=== PATIENT | male | born 1990 | race Caucasian/White ===

== ENCOUNTER 2016-05-03 15:35 | Inpatient (IN) | payer OTHER ==
[~2016-05-03] VITALS: Ht 185.4 cm; Wt 72.6 kg
[~2016-05-03 15:35] MED LIST: AMITRIPTYLINE H25 M1 PO; AUGMENTIN 875 M1 TAB PO; DEXILANT60 MG PO; FLEXERIL10 MG PO; FLU VACCINE 0.0.5 ML IM; IBUPROFEN800 MG PO; LEVAQUIN500 MG PO; MOBIC 15MG15 MG PO; MUCINEX DM 30 M1 TER PO; OMEPRAZOLE D/R20 MG PO; PROAIR HFA0.09 MG/Ac INH; ROBITUSSIN (SUG1 BOT PO
--- NOTE | 2016-05-03 15:52 | NUR ---
PT TO ED C/O FEVERS, COUGH SINCE THURSDAY NIGHT. HAS BEEN TAKING TYLENOL AT HOME FOR FEVERS. PT WENT TO WALK IN YESTERDAY TESTED FOR FLU AND STREP. BOTH NEGATIVE. SENT HOME WITH PO ABX. TEMP NOW 101.7.
--- NOTE | 2016-05-03 16:59 | ED THROAT/DENTAL COMPLAINT ---
History of Present Illness General Chief Complaint: Sore Throat, Dental Pain Stated Complaint: SORE THROAT, FEVER Source: patient Exam Limitations: no limitations Allergies Coded Allergies: ibuprofen (INTENSE FLUSHING OCCASIONALLY 05/03/16) Reconcile Medications Acetaminophen 500 MG TABLET 2 TAB PO Q6 PAIN (Reported) Penicillin V Potassium 500 MG TABLET 1 TAB PO TID ANTIBIOTIC (Reported) Triage Note: PT TO ED C/O FEVERS, COUGH SINCE THURSDAY NIGHT. HAS BEEN TAKING TYLENOL AT HOME FOR FEVERS. PT WENT TO WALK IN YESTERDAY TESTED FOR FLU AND STREP. BOTH NEGATIVE. SENT HOME WITH PO ABX. TEMP NOW 101.7. Triage Nurses Notes Reviewed? yes HPI: This patient is a 26-year-old male who presented to the emergency department today for evaluation of multiple complaints. The patient reported that Thursday night he had tactile fevers. He reported that while he was at work on Thursday he felt like, "I was going to ." The patient reported on Thursday he was having fevers and sore throat so he went to the walk-in clinic. They did a rapid strep test and a influenza swab which were both negative. The patient was prescribed penicillin VK which he has been taking without any relief of his symptoms. The patient reported that he is still having fevers and chills. Highest he reported was to 103F. The patient reported that he is having some mild throat discomfort which is worse with swallowing. He reported some associated nausea, but no vomiting. He denied any diarrhea, constipation, chest pain, difficulty breathing, headaches, or any other associated symptoms. (DONNY SANTIAGO,NNAMDI) Vital Signs & Intake/Output Vital Signs & Intake/Output Vital Signs Date Time Temp Pulse Resp B/P Pulse O2 O2 Flow FiO2 Ox Delivery Rate 05/05 1426 98.7 87 20 110/71 99 Room Air 05/05 0746 98.9 85 20 112/58 97 Room Air 05/04 2226 99.0 91 20 112/40 96 Room Air 05/04 2152 101.5 ED Intake and Output 05/05 0000 05/04 1200 Intake Total 3140 400 Output Total 1620 Balance 1520 400 Intake, IV 1200 400 Intake, Oral 1940 Number 0 Bowel Movements Output, Urine 1620 Patient 160 lb Weight Past History Travel History Traveled to [place] past 21 day No Medical History Any Pertinent Medical History? see below for history Neurological: NONE EENT: NONE Cardiovascular: NONE Respiratory: NONE Gastrointestinal: NONE Hepatic: NONE Renal: NONE Musculoskeletal: NONE Psychiatric: depression Endocrine: NONE Blood Disorders: NONE Cancer(s): NONE CASE ASSISTANT/Reproductive: NONE Surgical History Surgical History: N Psychosocial History What is your primary language Tunisian Tobacco Use: Current Daily Use Daily Tobacco Use Amount/Type: => 5 Cigarettes daily ETOH Use: occasional use Illicit Drug Use: denies illicit drug use Family History Hx Contributory? No (NNAMDI HINES PA-C) Review of Systems Review of Systems Constitutional: Reports: see HPI. EENTM: Reports: see HPI. Respiratory: Reports: no symptoms. Cardiovascular: Reports: no symptoms. GI: Reports: see HPI. Genitourinary: Reports: no symptoms. Musculoskeletal: Reports: no symptoms. Skin: Reports: no symptoms. Neurological/Psychological: Reports: no symptoms. All Other Systems: Reviewed and Negative (NNAMDI HINES PA-C) Physical Exam Physical Exam Mouth/Throat: paryngeal injection with no tonsillar exudates or uvular shift. no oropharyngeal lesions or edema. no mandibular or maxillary edema. no drooling or trismus Comments: Well-developed well-nourished person in no acute distress HEENT: Normal EENT exam, head normocephalic, moist mucous membranes Pupils equally round and reactive to light. Neck: Supple. bilateral submandibular and tonsillar lymphadenopathy which is nontender to palpation. No meningeal signs. Full range of motion. No midline tenderness Back: Normal gait Cardiovascular: Tachycardic with a regular rhythm and no murmurs Respiratory: Chest nontender. No respiratory distress. Breath sounds clear to auscultation bilaterally with no wheezes, rales, or rhonchi Abdomen: Soft, nontender and nondistended. No rebound or guarding. No peritoneal signs. Extremity: Normal and equal pulses. Neuro: Alert oriented x3, cranial nerves II through XII grossly intact. Skin: No appreciable rash on exposed skin, skin is warm and clammy Psych: Mood and affect is normal Core Measures ACS in differential dx? No Severe Sepsis Present: No Septic Shock Present: No (NNAMDI HINES PA-C) Progress Differential Diagnosis: epiglottitis, Ludwigs angina, meningitis, odontogenic abscess, casie-tonsillar abscess, pharyngeal for. body, stomatitis/gingivitis, strep pharyngitis, pneumonia, influenza, sinusitis Diagnostic Imaging: Viewed by Me: Radiology Read. Discussed w/RAD: Radiology Read. CXR Impression: PATIENT: FUAD TERRY III PRESENT AGE: 26 PATIENT ACCOUNT NO: [id number] : 91 LOCATION: [facility] ORDERING PHYSICIAN: NNAMDI HINES PA-C SERVICE DATE: 05/03/16-1635 EXAM TYPE: RAD - XRY-CHEST XRAY, PA AND LATERAL EXAMINATION: XR CHEST 2 VIEWS CLINICAL INFORMATION: Fever and cough; question pneumonia. COMPARISON: Prior chest radiographs, most recently 10/11/2014. TECHNIQUE: Frontal and lateral views of the chest were obtained. FINDINGS: The heart, great vessels, pulmonary vasculature and mediastinum are normal. The lungs show no focal infiltrate, effusion or pneumothorax. There is no acute osseous abnormality. IMPRESSION: No active cardiopulmonary disease. DICTATED BY: JEREMY NIEVES MD DATE/TIME DICTATED :05/03/161658 NIB ADJUSTER:TERRY DATE/TIME TRANSCRIBED:05/03/161658 CONFIDENTIAL, DO NOT COPY WITHOUT APPROPRIATE AUTHORIZATION. < Electronically signed in Other Vendor System> SIGNED BY: JEREMY NIEVES MD 05/03/16 1703 (DONNY SANTIAGO,NNAMDI) Plan of Care: Orders Procedure Date/time Status Regular Diet 05/05 D Active CBC WITHOUT DIFFERENTIAL 05/05 1507 Complete Change service to 05/05 1001 Active Change service to 05/05 0935 Active Lab Add-on Test 05/05 UNK Active Current Medications Sig/[place] Start time Last Medication Dose Stop Time Status Admin Ondansetron HCl 4 MG Q8P PRN 05/03 2345 AC (Zofran) Oxycodone HCl 5 MG Q6P PRN 05/03 2345 AC (Roxicodone) Laboratory Tests 05/05/16 1820: CBC w Diff MAN DIFF ORDERED, RBC 5.28, MCV 65.6 L, MCH 20.5 L, RDW 17.0 H, MPV 10.5 H, Gran % 64.7, Lymphocytes % 24.1, Monocytes % 9.8 H, Eosinophils % 1.4, Basophils % 0 L, Absolute Granulocytes 3.5, Segmented Neutrophils 60, Absolute Lymphocytes 1.3, Lymphocytes 31, Monocytes 8, Absolute Monocytes 0.5, Eosinophils 1, Absolute Eosinophils 0.1, Absolute Basophils 0, Platelet Estimate VERIFIED BY SMEAR, Hypochromic-Microcytic 1+, Poikilocytosis 1+, Anisocytosis 1+ , Microcytic Cells 1+, Target Cells FEW, Ovalocytes FEW, Elliptocytes RARE, PUBS MCHC 31.2 L, Fld Total RBCs Counted 100 Departure Departure Disposition: STILL A PATIENT Condition: Stable Clinical Impression Primary Impression: Sepsis Qualifiers: Sepsis type: sepsis due to unspecified organism Qualified Code: A41.9 - Sepsis, unspecified organism Referrals: KULDIP LGOAN MD (PCP/Family) Departure Forms: Customer Survey General Discharge Information Admission Note Spoke With: KARLY MURRAY MD Documentation of Exam: Documentation of any treatments & extenuating circumstances including Concerns Regarding Discharge (functional status, medication knowledge or non-compliance, living conditions, etc.) that warrant an admission rather than observation: [ This patient is a 26-year-old male who presented to the emergency department today for evaluation of fever. In the emergency department, fever as high as 104.7F. Tachycardic. This patient is septic. D-dimer not elevated. No increase in white blood cell count. Lactic acid is not elevated. This patient late to be admitted to Gen. medicine for IV fluids, antipyretics, follow up blood cultures, follow-up urine culture, and close monitoring. Premature discharge could prove medically harmful.] (DONNY SANTIAGO,NNAMDI) PA/MARKETING TRAFFIC COORDINATOR Co-Sign Statement Statement: ED Attending supervision documentation- [] I saw and evaluated the patient. I have also reviewed all the pertinent lab results and diagnostic results. I agree with the findings and the plan of care as documented in the PA's/MARKETING TRAFFIC COORDINATOR's documentation. [x] I have reviewed the ED Record and agree with the PA's/MARKETING TRAFFIC COORDINATOR's documentation. [] Additions or exceptions (if any) to the PAs/MARKETING TRAFFIC COORDINATOR's note and plan are summarized below: [] (ESTEPHANIA MORALES,KAISER Freeman) Urine Color YEL, Urine Clarity CLEAR, Urine pH 6.0, Ur Specific [place] 1.020, Urine Protein NEG, Urine Ketones 40 H, Urine Nitrite NEG, Urine Bilirubin NEG, Urine Urobilinogen 1.0, Ur Leukocyte Esterase NEG, Ur Microscopic EXAM NOT REQUIRED, Urine Hemoglobin NEG, Urine Glucose NEG 05/03/162157: Urine Opiates Screen < 100.00, Methadone Screen 52, Barbiturate Screen < 60, Ur Phencyclidine Scrn < 6.00, Amphetamines Screen < 100, U Benzodiazepines Scrn < 85, Urine Cocaine Screen < 50, Urine Cannabis Screen < 5.00 05/03/162109: Lactic Acid 0.6 L, D-Dimer < 200 05/03/16 1928: Anion Gap 10, Estimated GFR > 60, BUN/Creatinine Ratio 15.6, Glucose 97, Calcium 8.1 L, Total Bilirubin 1.1, AST 20, ALT 30, Alkaline Phosphatase 48, Total Protein 6.2 L, Albumin 3.5, Globulin 2.7, Albumin/Globulin Ratio 1.3, CBC w Diff MAN DIFF ORDERED, RBC 4.80, MCV 65.6 L, MCH 20.9 L, RDW 16.6 H, MPV 9.6, Gran % 81.8 H, Lymphocytes % 11.8 L, Monocytes % 6.0, Eosinophils % 0, Basophils % 0.4, Absolute Granulocytes 6.3, Segmented Neutrophils 80 H, Band Neutrophils 3, Absolute Lymphocytes 0.9 L, Lymphocytes 9 L, Monocytes 8, Absolute Monocytes 0.5, Absolute Eosinophils 0, Absolute Basophils 0, Platelet Estimate ADEQUATE, Hypochromic-Microcytic 1+, Poikilocytosis 1+, Microcytic Cells 2+, Target Cells FEW, Ovalocytes FEW, PUBS MCHC 31.9 L Microbiology 05/03 2204 URINE ROUT: Urine Culture - RECD 05/04 2119 BLOOD: Blood Culture - RECD 05/03 2109 BLOOD: Blood Culture - RECD 05/03 1728 NASOPHARYN: Influenza Virus A & B Rapid Smear - COMP Diagnostic Imaging: Viewed by Me: Radiology Read. Discussed w/RAD: Radiology Read. CXR Impression: PATIENT: FUAD TERRY III PRESENT AGE: 26 PATIENT ACCOUNT NO: [id number] : 91 LOCATION: [facility] ORDERING PHYSICIAN: NNAMDI HINES PA-C SERVICE DATE: 05/03/16-163 EXAM TYPE: RAD - XRY-CHEST XRAY, PA AND LATERAL EXAMINATION: XR CHEST 2 VIEWS CLINICAL INFORMATION: Fever and cough; question pneumonia. COMPARISON: Prior chest radiographs, most recently 10/11/2014. TECHNIQUE: Frontal and lateral views of the chest were obtained. FINDINGS: The heart, great vessels, pulmonary vasculature and mediastinum are normal. The lungs show no focal infiltrate, effusion or pneumothorax. There is no acute osseous abnormality. IMPRESSION: No active cardiopulmonary disease. DICTATED BY: JEREMY NIEVES MD DATE/TIME DICTATED :05/03/161658 NIB ADJUSTER:TERRY DATE/TIME TRANSCRIBED:05/03/161658 CONFIDENTIAL, DO NOT COPY WITHOUT APPROPRIATE AUTHORIZATION. < Electronically signed in Other Vendor System> SIGNED BY: JEREMY NIEVES MD 05/03/16 1704 (NNAMDI HINES PA-C) Departure Departure Disposition: STILL A PATIENT Condition: Stable Clinical Impression Primary Impression: Sepsis Qualifiers: Sepsis type: sepsis due to unspecified organism Qualified Code: A41.9 - Sepsis, unspecified organism Referrals: KULDIP LOGAN MD (PCP/Family) Departure Forms: Customer Survey General Discharge Information Admission Note Spoke With: KARLY MURRAY MD Documentation of Exam: Documentation of any treatments & extenuating circumstances including Concerns Regarding Discharge (functional status, medication knowledge or non-compliance, living conditions, etc.) that warrant an admission rather than observation: [ This patient is a 26-year-old male who presented to the emergency department today for evaluation of fever. In the emergency department, fever as high as 104.7F. Tachycardic. This patient is septic. D-dimer not elevated. No increase in white blood cell count. Lactic acid is not elevated. This patient late to be admitted to Gen. medicine for IV fluids, antipyretics, follow up blood cultures, follow-up urine culture, and close monitoring. Premature discharge could prove medically harmful.] (NNAMDI HINES PA-C) PA/MARKETING TRAFFIC COORDINATOR Co-Sign Statement Statement: ED Attending supervision documentation- [] I saw and evaluated the patient. I have also reviewed all the pertinent lab results and diagnostic results. I agree with the findings and the plan of care as documented in the PA's/MARKETING TRAFFIC COORDINATOR's documentation. [x] I have reviewed the ED Record and agree with the PA's/MARKETING TRAFFIC COORDINATOR's documentation. [] Additions or exceptions (if any) to the PAs/MARKETING TRAFFIC COORDINATOR's note and plan are summarized below: [] (ESTEPHANIA MORALES,KAISER Freeman)
--- NOTE | 2016-05-03 17:03 | RADIOLOGY REPORT ---
EXAMINATION: XR CHEST 2 VIEWS CLINICAL INFORMATION: Fever and cough; question pneumonia. COMPARISON: Prior chest radiographs, most recently 10/11/2014. TECHNIQUE: Frontal and lateral views of the chest were obtained. FINDINGS: The heart, great vessels, pulmonary vasculature and mediastinum are normal. The lungs show no focal infiltrate, effusion or pneumothorax. There is no acute osseous abnormality. IMPRESSION: No active cardiopulmonary disease.
--- NOTE | 2016-05-03 17:33 | NUR ---
IVF COMPLETE. FLU AND STREP SWABS SENT. AWAITING RESULTS. PA AWARE OF INCREASING TEMP, WILL RECHECK
[2016-05-03] MEDS ORDERED: PENICILLIN V P500 M1 PO (17:58)
[2016-05-03] MEDS ORDERED: ACETAMINOPHEN500 M4 PO (17:58)
--- NOTE | 2016-05-03 19:31 | NUR ---
PT 103F TEMPANIC. 2ND LITER NS BOLUS STARTED
--- NOTE | 2016-05-03 19:31 | NUR ---
BLOOD SAMPLES (LAV/SST) OBTAINED AND SENT TO LAB
[2016-05-03 19:38] LABS: ABSOLUTE BASOPHIL COUNT 0 /CUMM (0.0-0.2); ABSOLUTE EOSINOPHIL COUNT 0 /CUMM (0.0-0.7); ABSOLUTE GRANULOCYTE CT 6.3 /CUMM (1.4-6.5); ABSOLUTE LYMPH COUNT 0.9 /CUMM (1.2-3.4); ABSOLUTE MONOCYTE COUNT 0.5 /CUMM (0.10-0.60); BASOPHIL % 0.4 % (0.0-2.0); EOSINOPHIL % 0 % (0-5); GRANULOCYTE % 81.8 % (42.2-75.2); HEMATOCRIT 31.5 % (42-52); MEAN CORPUSCULAR HGB 20.9 PG (27.0-31.0); MEAN CORPUSCULAR HGB CONC 31.9 G/DL (33.0-37.0); MEAN CORPUSCULAR VOLUME 65.6 FL (80.0-94.0); MEAN PLATELET VOLUME 9.6 FL (7.4-10.4); PLATELET COUNT 103 /CUMM (130-400); RBC DISTRIBUTION WIDTH 16.6 % (11.5-14.5); WHITE BLOOD CELL COUNT 7.8 /CUMM (4.8-10.8)
--- NOTE | 2016-05-03 20:54 | NUR ---
PA NOTIFIED OF TEMP RECHECK. PT AMBULATORY TO/FROM BATHROOM WITH STEADY GAIT. C/O CHILLS, FEELING "LIKE CRAP."
--- NOTE | 2016-05-03 21:18 | NUR ---
RE-DRAWN BLOOD WORK BLUE GOLD LAV PINK MOFFETT TUBES COLLECTED AND SENT ALONG WITH FIRST SET OF CULTURES
--- NOTE | 2016-05-03 22:00 | NUR ---
2ND LITER NS BOLUS STARTED
--- NOTE | 2016-05-03 22:10 | NUR ---
URINE TRIO SENT
--- NOTE | 2016-05-03 23:23 | NUR ---
HOUSE AND ATTENDING AT BEDSIDE
--- NOTE | 2016-05-03 23:46 | NUR ---
PT MOVED TO ROOM 3 WHILE AWAITING BED ASSIGNMENT, CLEAR LIQUIDS PROVIDED WITH OK FROM DR MURRAY, PT VOICING NO OTHER NEEDS AT THIS TIME.
--- NOTE | 2016-05-03 23:53 | NUR ---
HOUSE STAFF AT BEDSIDE
--- NOTE | 2016-05-04 00:10 | NUR ---
PT GOING TO 210-2
--- NOTE | 2016-05-04 00:16 | History & Physical ---
SOREN MORALES,[facility] 05/04/16 0013: General Information and HPI Statement: I have seen and personally examined FUAD TERRY III and documented this H&P. The patient is a 26 year old M who presented with a patient stated chief complaint of fevers. Source of Information: patient Exam Limitations: no limitations History of Present Illness: This is a 26-year-old gentleman with no known past medical history presented to [facility] ED for evaluation of fevers. Onset of fever is 3 days ago starting on thursday with a reported home Tmax of 103.7. Associated symptoms included sore throat, cough with no sputum production, generalized weakness, and nausea but no vomiting. Patient decided to go to an urgent care yesterday where his received a rapid strep test that was negative, was sent home with penicillin prescription due to high clinical suspicion for this strep pharyngitis. He reports having taken 4 doses of his penicillin.He then decided to present to [facility] ED today due to persistent fevers. Patient denies any ear pain or discharge, shortness of breath, diarrhea , or dysuria. He also denies any chest pain, palpitation, dizziness, or focal neurological deficit. Patient reports that he is up-to-date with his vaccinations including tetanus, and flu vaccine which she received last month. Allergies/Medications Allergies: Coded Allergies: ibuprofen (INTENSE FLUSHING OCCASIONALLY 05/03/16) Home Med list Acetaminophen 500 MG TABLET 2 TAB PO Q6 PAIN (Reported) Penicillin V Potassium 500 MG TABLET 1 TAB PO TID ANTIBIOTIC (Reported) Past History Travel History Traveled to [place] past 21 day No Medical History Neurological: NONE EENT: NONE Cardiovascular: NONE Respiratory: NONE Gastrointestinal: NONE Hepatic: NONE Renal: NONE Musculoskeletal: NONE Psychiatric: depression Endocrine: NONE Blood Disorders: NONE Cancer(s): NONE TRAVEL CONSULTANT/Reproductive: NONE Surgical History Surgical History: N Past Family/Social History Psychosocial History ETOH Use: occasional use Illicit Drug Use: denies illicit drug use Review of Systems Review of Systems Constitutional: Reports: see HPI. EENTM: Reports: see HPI. Cardiovascular: Reports: no symptoms. Respiratory: Reports: cough. GI: Reports: see HPI. Genitourinary: Reports: no symptoms. Musculoskeletal: Reports: no symptoms. Skin: Reports: no symptoms. Neurological/Psychological: Reports: no symptoms. Hematologic/Endocrine: Reports: no symptoms. Immunologic/Allergic: Reports: no symptoms. Exam & Diagnostic Data Last 24 Hrs of Vital Signs/I&O Vital Signs Date Time Temp Pulse Resp B/P Pulse O2 O2 Flow FiO2 Ox Delivery Rate 05/04 0118 97 Room Air 05/04 0015 104.2 05/03 2315 104.2 111 16 130/55 97 Room Air 05/03 2050 104.7 111 20 121/58 98 05/03 1738 103.4 05/03 1732 103.9 104 18 120/64 99 Room Air 05/03 1700 101.7 05/03 1547 101.7 133 20 124/77 97 Room Air Intake & Output 05/04 0800 05/04 0000 05/03 1600 Intake Total Output Total Balance Patient 72.575 kg 72.575 kg Weight Physical Exam General Appearance Alert, Oriented X3, Cooperative Skin No Significant Lesion HEENT Atraumatic, PERRLA, Mucous Membr. moist/pink, mild pharyngeal erythema Neck Supple, No JVD, No thryomegaly, +2 Carotid Pulse wo Bruit Lymphatic mild submental lymphadenopathy Cardiovascular Regular Rate, Normal S1, Normal S2 Lungs Clear to Auscultation, Normal Air Movement Abdomen Normal Bowel Sounds, Soft, No Tenderness Neurological Normal Speech, Sensation Intact Assessment/Plan Assessment: This is a 26-year-old gentleman male with no known significant past medical history presenting with high-grade fevers associated with sore throat, cough and generalized myalgias. Vitals at the ER were remarkable for elevated temperature of 104.2 and tachycardia, no leukocytosis was noted. Rapid flu,strept, and Monospot test was negative. Assessment and plan #Sepsis Patient made sepsis criteria with elevated temperatures, tachycardia. Source is currently not identified however with complaints of sore throat and mild pharyngeal erythema, most likely pharyngitis is the source. Plan Will admit to general medicine floor Will switch from Penicillin VK 2 amoxicillin 500 mg twice a day for 10 days for treatment of GAS. Acetaminophen for fevers Will consider ID consult if fevers are persistent despite antibiotic therapy Will obtain CT scan of abdomen aspiration was complaining of lower quadrant abdominal pain #Tobacco abuse Nicotine patch 14 mg daily Will provide smoking cessation consult #Thrombocytopenia Will trend CBC As Ranked By This Provider Problem List: 1. Sepsis Qualifiers Sepsis type: sepsis due to unspecified organism Qualified Code: A41.9 - Sepsis, unspecified organism 2. Fever Core Measures/Miscellaneous Acute Coronary Syndrome ACS Diagnosis: No Cerebrovascular Accident CVA/TIA Diagnosis: No Congestive Heart Failure CHF Diagnosis: No Venous Thromboembolism VTE Risk Factors: Age > 40 No [facility] V[facility] prophylaxis d/t: No contraindications No VTE Pharm Prophylaxis d/t: No contraindications VTE Diagnosis: No VTE Type: NONE VTE Confirmed by (Test): NONE Severe Sepsis Severe Sepsis Present: No Septic Shock Septic Shock Present: No Miscellaneous Documentation Attending Case Discussed With: KARLY MURRAY MD Primary Care Physician: KULDIP LOGAN MD Patient sees these Specialists NONE Level of Patient Care: General Medicine ABHAY RICKETTS 05/04/16 0041: Resident Review Statement Resident Statement: examined this patient, discussed with manager internet retails sales, agreed with manager internet retails sales Other Findings: Patient is a 26-year-old gentleman with no significant past medical history presented to the ED for evaluation of high-grade fever. Patient mentioned that he started having high-grade fevers on Thursday with a maximum pressure 103.7. Fever was associated with severe sore throat and dry cough He was seen in urgent care on Thursday,rapid strep test and a influenza swab were negative and was prescribed penicillin VK, in view of high clinical suspicion for strep throat. Patient took 4 doses of the medication without any improvement of his symptoms. In the ED the patient reported generalized weakness and malaise. Reported nausea without any vomiting with nonspecific right lower quadrant pain without any guarding. He mentioned decreased urinary output without any burning micturition/blood and urine. Denied any recent travels sick contacts and denied any hiking . Denies any tick bites. Denies any illicit drug use. He has been monogamous with one partner, does not use any protection. He has a history of infectious mononucleosis about 10 years ago. Up to date with all of his vaccines. Vital admission 101.7-104.7 pulse 133, respiratory rate 20, blood pressure 124/ 77 on room air On examination Appearance: Alert and oriented 3 , moderate distress Skin: Grossly normal. HEENT: PEERLA, pharyngeal erythema Neck: Supple, No JVD, minimal bilateral submandibular and tonsillar lymphadenopathy, No meningeal signs. Full range of motion. No midline tenderness Cardiovascular: Regular Rate, Normal S1, Normal S2, No Murmurs Lungs: Lungs clear to auscultation bilaterally Abdomen: Bilateral lower quadrant tenderness more evident on the right side without any guarding. Neurological: Neuro exam intact grossly. Extremities: No Clubbing, No Cyanosis, No Edema. Vascular: Normal Pulses. Pertinent labs on admission: Normal WBC count 7.8, H&H of 10.0/31.5 low MCV 65.6, low platelet count: 103 lactic acid 0.6 urinalysis is benign No active cardiopulmonary disease. Assessment : Patient is a 26-year-old gentleman with no significant past medical history presented to the ED for evaluation of high-grade fever associated with severe sore throat and dry cough generalized weakness and malaise.Positive submandibular lymphadenopathy with pharyngeal erythema. The symptoms associated with nonspecific right lower quadrant pain associated with nausea .Differentials include Strep throat pharyngitis, negative monospot test. Plan: 1.Sepsis most likely due to Strep throat pharyngitis: * We'll admit the patient GenMed floor * Rapid strep a is negative, but we'll treat him empirically with antibiotics ( due to high clinical suspicion of strep throat) * Patient already received penicillin as well as an outpatient without any improvement we'll start the patient on amxocillin 500 mg twice a day. * Patient already received 3 L bolus in the ED on day and maintenance fluids normal saline at the rate of 100 mL per hour. * Blood cultures and urine cultures have been sent. * Zofran as needed for nausea. * Tylenol for fever * Watch for any hemodynamic stability. * If patient continued to remain febrile without any improvement in his symptoms will consider ID consult. 2. Appendicitis ruled out (fever, nausea with right low quadrant tenderness) * CT abdomen and pelvis with contrast:neg for underlying appendicitis. 3. Microcytic anemia with thrombocytopenia: * Monitor H&H * We'll do iron studies including iron ferritin and transferrin * Watch for any active signs of bleed. 4. 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 He was seen at an Urgent care center 1 day prior, Flu/ strep throat swabs were negative , was prescribed Penicillin VK TID of which he has taken 3 doses with no effect. Also reports mild abdominal discomfort and poor PO intake with decreased urinary output. Sick contact is his brother who has similar URI symptoms. He denies ear pain/ discharge, phlegm, recurrent sinus infections, recent dental work, skin rashes, diarrhea or genitourinary discharge. Sexually active with 1 partner and does not use protection. H/o infectious mononucleosis 10 yrs ago. Uptodate vaccination status. Denies IV drug abuse or off-street drugs. Vitals: Tmax 104.2, HR 110-130's, BP 130/55, sats 97% RA. Exam: Ill appearing young male, HEENT: pharyngeal erythema with bilateral prominent tonsils without exudates. Bilateral ?anterior cervical lymphadenopathy, no sinus tenderness. Otoscopic exam: normal. No neck stiffness. Chest clear, Heart S1S2 tachycardic. Abd soft, bilateral lower quadrant tenderness on deep palpation, no guarding or rigidity. Skin: no abnormal rashes. Labs: no leukocytosis, microcytic anemia, Plt 103, Na 132, normal renal functions, lactic acid 0.6, Ca 8.1 (corrected is 8.5), UA clear, CXR: no consolidation. CT abd/pelvis: no appendicitis. Monospot negative, Flu swab neg, Quick strep negative, Culture pending. 1. Sepsis secondary to high clinical suspicion of strep pharyngitis inspite of negative quick strep. GM admit, panculture, amoxicillin 500 BID for 10 days, IV fluids, anti-metics, anti-pyretics (no NSAIDs as patient allergic), clear liquid diet until he is able to swallow, chlorseptic lozenges, warm saline gargles. Despite this, if persistent fever over next 24-48 hours, consider ID consult. Check urine tox screen. 2. Microcytic anemia Hct (31) out of proportion to the low MCV (65) ? thalassemia. Guaiac all stools, check iron studies. 3. Thrombocytopenia in the setting of sepsis. 4. Smoking cessation counseling, nicotine patch. DVT ppx Alps. Full code.
--- NOTE | 2016-05-04 00:35 | NUR ---
REPORT GIVEN TO ISIDRA RUTLEDGE.
--- NOTE | 2016-05-04 00:41 | NUR ---
LACTIC OBTAINED AND SENT TO LAB
--- NOTE | 2016-05-04 01:11 | CT SCAN REPORT ---
EXAMINATION: CT ABDOMEN AND PELVIS WITH CONTRAST CLINICAL INFORMATION: Right lower quadrant pain. COMPARISON: 12/31/2007 TECHNIQUE: Multidetector volumetric imaging was performed of the abdomen and pelvis before and after the IV administration of 95 mL of Optiray 320 intravenous contrast. Sagittal and coronal reformatted images were obtained on the technologist's workstation. DLP: 310 mGy-cm FINDINGS: LUNG BASES: The visualized lung bases are unremarkable. LIVER, GALLBLADDER, AND BILIARY TREE: The liver is normal in size, shape, and attenuation. No focal hepatic lesion or biliary ductal dilatation is present. The gallbladder is unremarkable with no evidence of radiopaque gallstones, gallbladder wall thickening, or obvious pericholecystic inflammatory changes. PANCREAS: Unremarkable. SPLEEN: Unremarkable. ADRENAL GLANDS: Unremarkable. KIDNEYS AND URETERS: The kidneys are normal in size, shape, and attenuation. No hydronephrosis, hydroureter, or calculi seen. No perinephric stranding. BLADDER: Unremarkable. GASTROINTESTINAL TRACT: Lack of intra-abdominal fat somewhat limits the evaluation. The stomach and small bowel are unremarkable. No dilated loops of bowel or evidence of obstruction. No colonic wall thickening or inflammatory change. Normal appendix. No free air. Trace pelvic free fluid. ABDOMINAL WALL: No significant hernia is appreciated. LYMPH NODES: Normal. VASCULAR: Unremarkable. PELVIC VISCERA: The prostate and seminal vesicles are unremarkable. OSSEOUS STRUCTURES: Unremarkable. IMPRESSION: 1. Trace free fluid in the pelvis. This could be associated with a process such as enteritis, although there are no acute inflammatory changes seen involving the bowel. 2. Normal appendix.
[2016-05-04 01:30] VITALS: BP 108/50
--- NOTE | 2016-05-04 01:42 | Admission Certification ---
Admission Certification Certification Statement - As attending physician, I certify that at the time of - admission, based on clinical presentation, severity of - symptoms, need for further diagnostic testing and - therapeutic interventions, and risk of adverse outcomes - without in-hospital treatment, in my clinical assessment, - this patient requires an acute hospital stay for a minimum - of two nights or longer. I have also considered psychsocial - factors such as support system, advanced age, financial - issues, cognitive issues, and failed out-patient treatments, - past re-admission history, safety of patient, and lack of - compliance as applicable. Specific rationale supporting this admission is: Sepsis secondary to strep pharyngitis.
[2016-05-04 06:52] VITALS: BP 123/84
[2016-05-04 08:23] LABS: ABSOLUTE BASOPHIL COUNT 0 /CUMM (0.0-0.2); ABSOLUTE EOSINOPHIL COUNT 0 /CUMM (0.0-0.7); ABSOLUTE GRANULOCYTE CT 5.2 /CUMM (1.4-6.5); ABSOLUTE LYMPH COUNT 1.2 /CUMM (1.2-3.4); ABSOLUTE MONOCYTE COUNT 0.3 /CUMM (0.10-0.60); BASOPHIL % 0.2 % (0.0-2.0); EOSINOPHIL % 0 % (0-5); GRANULOCYTE % 77.2 % (42.2-75.2); HEMATOCRIT 31.2 % (42-52); MEAN CORPUSCULAR HGB 20.8 PG (27.0-31.0); MEAN CORPUSCULAR HGB CONC 31.4 G/DL (33.0-37.0); MEAN CORPUSCULAR VOLUME 66.2 FL (80.0-94.0); MEAN PLATELET VOLUME 10.2 FL (7.4-10.4); PLATELET COUNT 93 /CUMM (130-400); RBC DISTRIBUTION WIDTH 16.1 % (11.5-14.5); RED BLOOD CELL CT 4.71 /CUMM (4.70-6.10); WHITE BLOOD CELL COUNT 6.7 /CUMM (4.8-10.8)
--- NOTE | 2016-05-04 08:30 | PN- Housestaff ---
Subjective Follow-up For: suspected step pharyngitis Subjective: I saw and examined the patietn today morning He is still having lot of swelling in his throat, unable to swallow food, able to tolerae liquid diet. No fever, chills. Started to develop a mouth ulcer. Review of Systems Constitutional: Reports: see HPI, malaise, weakness. EENTM: Reports: nasal pain, throat pain, throat swelling, mouth pain, tooth pain. Objective Last 24 Hrs of Vital Signs/I&O Vital Signs Date Time Temp Pulse Resp B/P Pulse O2 O2 Flow FiO2 Ox Delivery Rate 05/04 0652 100.5 100 20 123/84 93 Room Air 05/04 0130 100.1 05/04 0130 100.1 97 18 108/50 97 Room Air 05/04 0118 97 Room Air 05/04 0015 104.2 05/03 2315 104.2 111 16 130/55 97 Room Air 05/03 2050 104.7 111 20 121/58 98 05/03 1738 103.4 05/03 1732 103.9 104 18 120/64 99 Room Air 05/03 1700 101.7 05/03 1547 101.7 133 20 124/77 97 Room Air Intake & Output 05/04 1600 05/04 0800 05/04 0000 Intake Total Output Total Balance Patient 72.575 kg Weight Physical Exam General Appearance: Alert Skin: No Rashes, No Breakdown HEENT: Atraumatic, PERRLA, EOMI, Mucous Membr. moist/pink, significant swelling in the throat, unable to open widely. Neck: Supple Lymphatic: Axillary nl, Cervical nl Cardiovascular: Regular Rate, Normal S1, Normal S2, No Murmurs Lungs: Clear to Auscultation, Normal Air Movement Abdomen: Normal Bowel Sounds, Soft, No Tenderness Neurological: Normal Gait, Normal Speech, Strength at 5/5 X4 Ext, Normal Tone, Sensation Intact Extremities: No Clubbing, No Cyanosis, No Edema Current Medications: Current Medications Sig/[place] Start time Last Medication Dose Route Stop Time Status Admin Acetaminophen 0 .STK-MED ONE 05/04 0011 DC IV Acetaminophen 650 MG Q6 PRN 05/03 2345 AC PO Acetaminophen 1,000 MG Q6P PRN 05/03 2345 AC 05/04 IV 0015 Acetaminophen 0 .STK-MED ONE 05/03 1700 DC IV Acetaminophen 1,000 MG ONCE ONE 05/03 1645 DC 05/03 N/A 1 UNIT IV 05/03 1659 1700 Amoxicillin 0 .STK-MED ONE 05/04 0006 DC PO Amoxicillin 500 MG BID 05/03 2344 AC 05/04 PO 0007 Folic Acid 1 MG DAILY 05/04 1000 CAN PO Ondansetron HCl 4 MG Q8P PRN 05/03 2344 AC PO Oxycodone HCl 5 MG Q6P PRN 05/03 234 AC PO Sodium Chloride 1,000 ML Q10H 05/03 234 AC 05/04 IV 0007 Sodium Chloride 1,000 ML BOLUS ONE 05/03 2100 DC 05/03 IV 05/03 215 2100 Sodium Chloride 1,000 ML BOLUS ONE 05/03 1845 DC 05/03 IV 05/03 1944 1930 Sodium Chloride 1,000 ML BOLUS ONE 05/03 1645 DC 05/03 IV 05/03 1744 1700 Last 24 Hrs of Lab/George Results Last 24 Hrs of Labs/Mics: Laboratory Tests 05/04/16 0620: Anion Gap 8, Estimated GFR > 60, BUN/Creatinine Ratio 11.3, CBC w Diff NO MAN DIFF REQ, RBC 4.71, MCV 66.2 L, MCH 20.8 L, RDW 16.1 H, MPV 10.2, Gran % 77.2 H, Lymphocytes % 17.7 L, Monocytes % 4.9, Eosinophils % 0, Basophils % 0.2, Absolute Granulocytes 5.2, Absolute Lymphocytes 1.2, Absolute Monocytes 0.3, Absolute Eosinophils 0, Absolute Basophils 0, PUBS MCHC 31.4 L 05/04/16 0040: Lactic Acid < 0.5 L 05/04/16 0036: Infectious [place] Titer NEGATIVE 05/03/165: Urine Color YEL, Urine Clarity CLEAR, Urine pH 6.0, Ur Specific [place] 1.020, Urine Protein NEG, Urine Ketones 40 H, Urine Nitrite NEG, Urine Bilirubin NEG, Urine Urobilinogen 1.0, Ur Leukocyte Esterase NEG, Ur Microscopic EXAM NOT REQUIRED, Urine Hemoglobin NEG, Urine Glucose NEG 05/03/16 2158: Urine Opiates Screen < 100.00, Methadone Screen 52, Barbiturate Screen < 60, Ur Phencyclidine Scrn < 6.00, Amphetamines Screen < 100, U Benzodiazepines Scrn < 85, Urine Cocaine Screen < 50, Urine Cannabis Screen < 5.00 05/03/162109: Lactic Acid 0.6 L, D-Dimer < 200 05/03/161927: Anion Gap 10, Estimated GFR > 60, BUN/Creatinine Ratio 15.6, Glucose 97, Calcium 8.1 L, Total Bilirubin 1.1, AST 20, ALT 30, Alkaline Phosphatase 48, Total Protein 6.2 L, Albumin 3.5, Globulin 2.7, Albumin/Globulin Ratio 1.3, CBC w Diff MAN DIFF ORDERED, RBC 4.80, MCV 65.6 L, MCH 20.9 L, RDW 16.6 H, MPV 9.6, Gran % 81.8 H, Lymphocytes % 11.8 L, Monocytes % 6.0, Eosinophils % 0, Basophils % 0.4, Absolute Granulocytes 6.3, Segmented Neutrophils 80 H, Band Neutrophils 3, Absolute Lymphocytes 0.9 L, Lymphocytes 9 L, Monocytes 8, Absolute Monocytes 0.5, Absolute Eosinophils 0, Absolute Basophils 0, Platelet Estimate ADEQUATE, Hypochromic-Microcytic 1+, Poikilocytosis 1+, Microcytic Cells 2+, Target Cells FEW, Ovalocytes FEW, PUBS MCHC 31.9 L 05/03/16 1728: Virus Culture Pending Microbiology 05/03 2204 URINE ROUT: Urine Culture - RECD 05/04 2119 BLOOD: Blood Culture - RECD 05/03 2109 BLOOD: Blood Culture - RECD 05/04 1727 NASOPHARYN: Influenza Virus A & B Rapid Smear - COMP Assessment/Plan Assessment: Assessment : Patient is a 26-year-old gentleman with no significant past medical history presented to the ED for evaluation of high-grade fever associated with severe sore throat and dry cough generalized weakness and malaise.Positive submandibular lymphadenopathy with pharyngeal erythema. The symptoms associated with nonspecific right lower quadrant pain associated with nausea .Differentials include Strep throat pharyngitis, negative monospot test. ER Course Vital admission 101.7-104.7 pulse 133, respiratory rate 20, blood pressure 124/ 77 on room air On examination Appearance: Alert and oriented 3 , moderate distress Skin: Grossly normal. HEENT: PEERLA, pharyngeal erythema Neck: Supple, No JVD, minimal bilateral submandibular and tonsillar lymphadenopathy, No meningeal signs. Full range of motion. No midline tenderness Cardiovascular: Regular Rate, Normal S1, Normal S2, No Murmurs Lungs: Lungs clear to auscultation bilaterally Abdomen: Bilateral lower quadrant tenderness more evident on the right side without any guarding. Neurological: Neuro exam intact grossly. Extremities: No Clubbing, No Cyanosis, No Edema. Vascular: Normal Pulses. Pertinent labs on admission: Normal WBC count 7.8, H&H of 10.0/31.5 low MCV 65.6, low platelet count: 103 lactic acid 0.6 urinalysis is benign No active cardiopulmonary disease. Plan: 1.Sepsis most likely due to Strep throat pharyngitis: * We'll admit the patient GenMed floor * Rapid strep a is negative, but we'll treat him empirically with antibiotics ( due to high clinical suspicion of strep throat) * Patient already received penicillin as well as an outpatient without any improvement we'll start the patient on amxocillin 500 mg twice a day. * Patient already received 3 L bolus in the ED on day and maintenance fluids normal saline at the rate of 100 mL per hour. * Blood cultures and urine cultures have been sent. * Zofran as needed for nausea. * Tylenol for fever * HIV serology requested. * If patient continued to remain febrile without any improvement in his symptoms will consider ID consult. 2. Appendicitis ruled out (fever, nausea with right low quadrant tenderness) * CT abdomen and pelvis with contrast:neg for underlying appendicitis. 3. Microcytic anemia with thrombocytopenia: * Monitor H&H * Iron studies are requested. * Watch for any active signs of bleed. 4. Mild to moderate pain controlled with Tylenol and oxycodone DVT prophylaxis with Alps(thrombocytopenia) Patient is full code Problem List: 1. Sepsis Pain Ratin Pain Location: throat Pain Goal: Pain 4 or less Pain Plan: tyelonol IV and PO Tomorrow's Labs & Rationales: cbc to monitro thrombocytopenia
[2016-05-04 15:15] VITALS: BP 110/58
--- NOTE | 2016-05-04 15:22 | PN- Att Addend ---
Attending MD Review Statement Attending Statement Attending MD Statement: examined this patient, discuss w/resident/PA/FISH HEADER, agreed w/resident/PA/FISH HEADER, reviewed EMR data (avail), discussed w/nursing Attending Assessment/Plan: Laboratory Tests 05/04/16 1350: LD Total Pending, LD 1 Pending, LD 2 Pending, LD 3 Pending, LD 4 Pending, LD 5 Pending, LD 1:LD 2 Ratio Pending 05/04/16 1350: Iron 12 L, TIBC 235 L, Ferritin Pending, Haptoglobin Pending, HIV 1&2 Ab Western Blot Cancelled 05/04/16 0620: Anion Gap 8, Estimated GFR > 60, BUN/Creatinine Ratio 11.3, CBC w Diff NO MAN DIFF REQ, RBC 4.71, MCV 66.2 L, MCH 20.8 L, RDW 16.1 H, MPV 10.2, Gran % 77.2 H, Lymphocytes % 17.7 L, Monocytes % 4.9, Eosinophils % 0, Basophils % 0.2, Absolute Granulocytes 5.2, Absolute Lymphocytes 1.2, Absolute Monocytes 0.3, Absolute Eosinophils 0, Absolute Basophils 0, PUBS MCHC 31.4 L, HIV 1&2 Ab Western Blot NONREACTIVE 05/04/16 0040: Lactic Acid < 0.5 L 05/04/16 0036: Infectious [place] Titer NEGATIVE 05/03/16 2205: Urine Color YEL, Urine Clarity CLEAR, Urine pH 6.0, Ur Specific Naper 1.020, Urine Protein NEG, Urine Ketones 40 H, Urine Nitrite NEG, Urine Bilirubin NEG, Urine Urobilinogen 1.0, Ur Leukocyte Esterase NEG, Ur Microscopic EXAM NOT REQUIRED, Urine Hemoglobin NEG, Urine Glucose NEG 05/03/16 2158: Urine Opiates Screen < 100.00, Methadone Screen 52, Barbiturate Screen < 60, Ur Phencyclidine Scrn < 6.00, Amphetamines Screen < 100, U Benzodiazepines Scrn < 85, Urine Cocaine Screen < 50, Urine Cannabis Screen < 5.00 05/03/16 2110: Lactic Acid 0.6 L, D-Dimer < 200 05/03/16 1928: Anion Gap 10, Estimated GFR > 60, BUN/Creatinine Ratio 15.6, Glucose 97, Calcium 8.1 L, Total Bilirubin 1.1, AST 20, ALT 30, Alkaline Phosphatase 48, Total Protein 6.2 L, Albumin 3.5, Globulin 2.7, Albumin/Globulin Ratio 1.3, CBC w Diff MAN DIFF ORDERED, RBC 4.80, MCV 65.6 L, MCH 20.9 L, RDW 16.6 H, MPV 9.6, Gran % 81.8 H, Lymphocytes % 11.8 L, Monocytes % 6.0, Eosinophils % 0, Basophils % 0.4, Absolute Granulocytes 6.3, Segmented Neutrophils 80 H, Band Neutrophils 3, Absolute Lymphocytes 0.9 L, Lymphocytes 9 L, Monocytes 8, Absolute Monocytes 0.5, Absolute Eosinophils 0, Absolute Basophils 0, Platelet Estimate ADEQUATE, Hypochromic-Microcytic 1+, Poikilocytosis 1+, Microcytic Cells 2+, Target Cells FEW, Ovalocytes FEW, PUBS MCHC 31.9 L 05/03/161727: Virus Culture Pending Microbiology 05/04 1727 NASOPHARYN: Influenza Virus A & B Rapid Smear - COMP Vital Signs Date Time Temp Pulse Resp B/P Pulse O2 O2 Flow FiO2 Ox Delivery Rate 05/04 1515 99.7 103 18 110/58 90 Room Air 05/04 0652 100.5 100 20 123/84 93 Room Air 05/04 0130 100.1 05/04 0130 100.1 97 18 108/50 97 Room Air 05/04 0118 97 Room Air 05/04 0015 104.2 05/03 2315 104.2 111 16 130/55 97 Room Air 05/03 2050 104.7 111 20 121/58 98 05/03 1738 103.4 05/03 1732 103.9 104 18 120/64 99 Room Air 05/03 1700 101.7 05/03 1547 101.7 133 20 124/77 97 Room Air Patient seen and examined at bedside. 26-year-old male admitted with the high- grade fevers for the last 3 days prior to admission. Patient went to the walk- in clinic prior to coming to the ER and the was given penicillin for possible strep throat. Patient took 3 doses of penicillin and was not feeling better so decided to come to the ER. Patient still complaining of the soreness in his throat and difficulty swallowing. Patient was started on amoxicillin and was also put on IV fluids. Patient not feeling any better but his fevers have been better since midnight. We will follow up on blood cultures. In case he has high-grade fever again then we will consider getting a CT of the neck to rule out any complications. We will also consider broadening his antibiotics in that situation. After reviewing his EMR it was noted that the patient has had chronic low MCV and low hemoglobin and low platelet count. Discussed with patient these findings and he he is not aware of that. Patient does not have any lymphadenopathy and the weight loss. Does not complain of any night sweats. Will get a LDH level and iron studies. H&H and may benefit from getting a hemoglobin electrophoresis which we will order tomorrow as we have to get permission from the pathologist to order that test. We will also check for HIV and patient is okay with that.
[2016-05-04 22:26] VITALS: BP 112/40
--- NOTE | 2016-05-05 06:00 | PN- Housestaff ---
EVA MORALES,ANGEL 05/05/16 0600: Subjective Follow-up For: Purulent exudative pharyngitis Subjective: I saw and examined the patient today morning He still had lot of difficulty with swallowing, able to tolerate clears. Unable to take solid foods. No ear pain, still had cough without any productive cough. Review of Systems Constitutional: Reports: see HPI. Respiratory: Reports: cough. Denies: sputum production. Comments: ROS negative except the above. Objective Last 24 Hrs of Vital Signs/I&O Vital Signs Date Time Temp Pulse Resp B/P Pulse O2 O2 Flow FiO2 Ox Delivery Rate 05/04 2225 99.0 91 20 112/40 96 Room Air 05/04 2152 101.5 05/04 1515 99.7 103 18 110/58 90 Room Air 05/04 0652 100.5 100 20 123/84 93 Room Air Intake & Output 05/05 0800 05/05 0000 05/04 1600 Intake Total 600 2540 Output Total 800 820 Balance -200 1720 Intake, IV 400 800 Intake, Oral 200 1740 Number 0 Bowel Movements Output, Urine 800 820 Physical Exam General Appearance: Alert, Oriented X3, Cooperative Skin: No Rashes, No Breakdown HEENT: significant tonsillar enlargement with whitish exudates. Neck: Supple Cardiovascular: Normal S1, Normal S2, No Murmurs Lungs: Clear to Auscultation, Normal Air Movement Abdomen: Normal Bowel Sounds, Soft, No Tenderness Neurological: Normal Gait, Normal Speech, Strength at 5/5 X4 Ext, Normal Tone, Sensation Intact Extremities: No Clubbing, No Cyanosis, No Edema Vascular: Normal Pulses, Pulses Symmetrical Current Medications: Current Medications Sig/Wilton Start time Last Medication Dose Route Stop Time Status Admin Acetaminophen 650 MG .STK-MED ONE 05/04 2142 DC PO 05/05 2143 Acetaminophen 650 MG Q6 PRN 05/03 2344 AC 05/04 PO 214 Acetaminophen 1,000 MG Q6P PRN 05/03 234 AC 05/04 IV 0015 Amoxicillin 500 MG BID 05/03 2344 AC 05/04 PO 2143 Ondansetron HCl 4 MG Q8P PRN 05/03 2344 AC PO Oxycodone HCl 5 MG Q6P PRN 05/03 2344 AC PO Sodium Chloride 1,000 ML Q10H 05/03 2344 05/04 IV 0007 Assessment/Plan Assessment: Patient is a 26-year-old gentleman with no significant past medical history presented to the ED for evaluation of high-grade fever associated with severe sore throat and dry cough generalized weakness and malaise.Positive submandibular lymphadenopathy with pharyngeal erythema. The symptoms associated with nonspecific right lower quadrant pain associated with nausea .Differentials include Strep throat pharyngitis, negative monospot test. ER Course Vital admission 101.7-104.7 pulse 133, respiratory rate 20, blood pressure 124/ 77 on room air Pertinent labs on admission: Normal WBC count 7.8, H&H of 10.0/31.5 low MCV 65.6, low platelet count: 103 lactic acid 0.6 urinalysis is benign No active cardiopulmonary disease. Plan: Sepsis most likely due to Strep throat pharyngitis: * Rapid strep a is negative still highly suspiscious, so started on amoxicillin 500mg BID, as already received penicillin as an outpatient without any improvement. * Patient already received 3 L bolus in the ED on day of admission, fluids normal saline at the rate of 100 mL per hour. * Blood cultures and urine cultures have been sent. * Tylenol for fever and zofran for nausea. * HIV, EBV negative. * Throat culture growing mixed zain. Sexual history - Possible STD * Patient is actively participating in unprotected sex with multiple partners. ( feels very proud) * Possibly in window period for HIV. * Work up for syphilis, gonorrhea, chlamydia is a consideration Appendicitis ruled out (fever, nausea with right low quadrant tenderness) * CT abdomen and pelvis with contrast:neg for underlying appendicitis. Microcytic anemia with thrombocytopenia: * Monitor H&H * Iron studies show low iron, low TIBC with normal ferritin. * Watch for any active signs of bleed. * LD levels are requested - pending * Requesting records from the PCP - they didnt reach us back. Peripheral smear requested * Shows anisocytosis, leukopenia, low platelets, hypochromic microcytic cells, target cells, tear drop cells present. No parasitic bodies/percy cross evident * Appears global depression from marrow * May be secondary to alcohol vs early stages of HIV. Mild to moderate pain controlled with Tylenol and oxycodone DVT prophylaxis with Alps(thrombocytopenia) Patient is full code Problem List: 1. Fever 2. Sepsis 3. Exudative pharyngitis Pain Ratin Pain Location: throat region Pain Goal: Pain 4 or less Pain Plan: tylenol Tomorrow's Labs & Rationales: cbc to monitor anemia and thrombocytopenia MICHELE BHATTI MD 05/05/16 1440: Attending MD Review Statement Attending Statement Attending MD Statement: examined this patient, discuss w/resident/PA/PEANUT ROASTER, agreed w/resident/PA/PEANUT ROASTER, reviewed EMR data (avail), discussed with nursing, discussed with case mgmt, reviewed images, amended to note Attending Assessment/Plan: Patient seen and examined, feeling slightly overall better today. He had a temp spike of 101 last night. Vital Signs Date Time Temp Pulse Resp B/P Pulse O2 O2 Flow FiO2 Ox Delivery Rate 05/05 1426 98.7 87 20 110/71 99 Room Air 05/05 0746 98.9 85 20 112/58 97 Room Air 05/04 2226 99.0 91 20 112/40 96 Room Air 05/04 2152 101.5 05/04 1515 99.7 103 18 110/58 90 Room Air on exam; Aox3, nad. cv; s1,s2, rrr resp; clear abd; soft, nt, bs+ ext; no edema no labs. A/P; 26-year-old male who was admitted with sepsis secondary to acute pharyngitis. Patient was also found to have chronic anemia as well as iron deficiency with a family history significant for thalassemia. Patient also has thrombocytopenia. At this point we'll continue amoxicillin and follow-up on the cultures. Please look at the peripheral smear. Will try to get some records from patient's primary care doctor about his chronic anemia. DVT prophylaxis: ALPS 2/2 to thrombcytopenia
[2016-05-05 07:46] VITALS: BP 112/58
[2016-05-05 14:26] VITALS: BP 110/71
[2016-05-05 19:05] LABS: ABSOLUTE BASOPHIL COUNT 0 /CUMM (0.0-0.2); ABSOLUTE EOSINOPHIL COUNT 0.1 /CUMM (0.0-0.7); ABSOLUTE LYMPH COUNT 1.3 /CUMM (1.2-3.4); BASOPHIL % 0 % (0.0-2.0); EOSINOPHIL % 1.4 % (0-5); WHITE BLOOD CELL COUNT 5.5 /CUMM (4.8-10.8)
[2016-05-05 19:08] LABS: ABSOLUTE GRANULOCYTE CT 3.5 /CUMM (1.4-6.5); ABSOLUTE MONOCYTE COUNT 0.5 /CUMM (0.10-0.60); GRANULOCYTE % 64.7 % (42.2-75.2); HEMATOCRIT 34.7 % (42-52); MEAN CORPUSCULAR HGB 20.5 PG (27.0-31.0); MEAN CORPUSCULAR HGB CONC 31.2 G/DL (33.0-37.0); MEAN CORPUSCULAR VOLUME 65.6 FL (80.0-94.0); MEAN PLATELET VOLUME 10.5 FL (7.4-10.4); PLATELET COUNT 78 /CUMM (130-400); RED BLOOD CELL CT 5.28 /CUMM (4.70-6.10)
[2016-05-05 22:19] VITALS: BP 117/65
--- NOTE | 2016-05-06 06:53 | PN- Housestaff ---
FAHEEM MORALES,[facility] [place] 05/06/16 0653: Subjective Follow-up For: Suspected strep pharyngitis Anemia Thrombocytopenia Subjective: No acute events overnight. Patient remains afebrile. He was seen and examined this morning. He feels well today and has no complaints. He is eager to go home today as he is worried about his daughter who he left under the care of his mother and girlfriend. He has a truck parked outside and would like to go home despite the weather conditions. Review of Systems Constitutional: Reports: no symptoms. Objective Last 24 Hrs of Vital Signs/I&O Vital Signs Date Time Temp Pulse Resp B/P Pulse O2 O2 Flow FiO2 Ox Delivery Rate 05/06 0705 98.3 79 18 125/74 99 Room Air 05/05 2219 98.1 86 18 117/65 96 Room Air Intake & Output 05/06 1600 05/06 0800 05/06 0000 Intake Total 240 480 Output Total Balance 240 480 Intake, Oral 240 480 Physical Exam General Appearance: Alert, Oriented X3, No Acute Distress Skin: No Rashes HEENT: Mucous Membr. moist/pink, No Tonsillar Exudates Noted Lymphatic: Tender Anterior Cervical Adenopathy Cardiovascular: Regular Rate, Normal S1, Normal S2 Lungs: Clear to Auscultation Abdomen: Soft, No Tenderness, Positive Bowel Sounds Extremities: No Clubbing, No Cyanosis, No Edema Current Medications: Current Medications Sig/Wilton Start time Last Medication Dose Route Stop Time Status Admin Acetaminophen 650 MG .STK-MED ONE 05/05 2152 DC PO 05/05 2153 Acetaminophen 650 MG Q6 PRN 05/03 2345 DCD 05/05 PO 2156 Acetaminophen 1,000 MG Q6P PRN 05/03 2345 DCD 05/04 IV 0015 Amoxicillin 500 MG BID 05/06 0000 DCD PO 05/11 2359 Amoxicillin 500 MG BID 05/03 2345 DCD 05/06 PO 0908 Ondansetron HCl 4 MG Q8P PRN 05/03 2345 DCD PO Oxycodone HCl 5 MG Q6P PRN 05/03 2345 DCD PO Assessment/Plan Assessment: 26 y/o sexually active M with no significant PMHx who presents with suspected strep pharyngitis. #Suspected strep pharyngitis: Clinically improved with defervescence and resolution of tonsillar exudates. * Continue amoxicillin for 5 more days after discharge for a total of 10 days of antibiotics. * Gonorrheal throat cultures sent. #Microcytic hypochromic anemia with thrombocytopenia: H/H stable at 10.8/34.7 today however platelets have further decreased to 78. Work-up negative so far. HIV negative. CXR and CT Abdomen/Pelvis unremarkable. No evidence of hemolysis with normal bilirubin. Peripheral smear with few target cells and ovalocytes. Iron studies with low iron, low TIBC and normal ferritin. Severe microcytosis would be suspicious for thalassemia in the setting of positive family history, however it usually presents at a younger age. * Will have CBC checked in 2 days after discharge (05/08/16) and send results to PCP. 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 * Will need further work-up as outpatient. Outpatient referral provided for leaf stamper Dr. Scales. * Haptoglobin pending. Will follow up with result as outpatient. Diet: Regular Diet DVT PPx: ALPs CODE: FULL Problem List: 1. Exudative pharyngitis 2. Chronic anemia 3. Thrombocytopenia 4. Microcytic hypochromic anemia 5. Family history of thalassemia Pain Ratin Pain Location: N/A Pain Goal: Remain pain free Pain Plan: Oxycodone 5 mg PO Q6H PRN for severe pain (scale 7-10) Tylenol 1 g IV Q6H PRN for moderate pain (scale 4-6) Tylenol 650 mg PO Q6H PRN for mild pain (scale 1-3) Tomorrow's Labs & Rationales: N/A Discharge Plan Discharge Disposition: home Stable for Discharge? Yes Anticipated Discharge (Day): today JEROD GIRARD MD 05/06/16 1301: Attending MD Review Statement Attending Statement Attending MD Statement: examined this patient, discuss w/resident/PA/TRANSIT OPERATIONS SUPERVISOR, agreed w/resident/PA/TRANSIT OPERATIONS SUPERVISOR, reviewed EMR data (avail), discussed with nursing, discussed with case mgmt, reviewed images Attending Assessment/Plan: Patient is eager to leave. He has a 5-year-old daughter at home who he is left in the care of his mother and girlfriend and he is worried about her today. His truck is parked outside and also I spoke to him at length about driving in these conditions he feels he would rather pay the fine of the travel back and go home. This is a 26-year-old sexually active male who is here with a suspected strep pharyngitis on amoxicillin. His fever has defervesced clearly and his last spike was on May 04 in the evening. However he remains anemic and thrombocytopenic with some chronicity to it. He doesn't have an elevated bilirubin and there is no evidence for hemolysis. He also has a family history of thalassemia with chronic microcytosis. I explained to him at length that he needs the anemia and thrombocytopenia worked up. I also explained the negative CT scan, negative chest x-ray and negative HIV testing. The plan is that he's going to repeat his CBC on the and he is going to see his PCP in [place] on Thursday the and when he sees her she'll have the results of the CBC. She will also know to follow-up on all the haptoglobin and tests sent over here and he's also been given a referral for outpatient hematology.
[2016-05-06 07:05] VITALS: BP 125/74
[2016-05-06] MEDS ORDERED: AMOXICILLIN500 M2 PO ×2 (08:37→09:09)
--- NOTE | 2016-05-06 08:39 | Patient Discharge Instructions ---
Acute Coronary Syndrome Inclusion Criteria At DC or during hospital stay patient has or had the following: ACS DIAGNOSIS No Discharge Core Measures Meds if any: Prescribed or Continued at Discharge Meds if any: NOT Prescribed or Continued at Discharge Congestive Heart Failure Inclusion Criteria At DC or during hospital stay patient has or had the following: CHF DIAGNOSIS No Discharge Core Measures Meds if any: Prescribed or Continued at Discharge Meds if any: NOT Prescribed or Continued at Discharge Cerebrovascular accident Inclusion Criteria At DC or during hospital stay patient has or had the following: CVA/TIA Diagnosis No Discharge Core Measures Meds if any: Prescribed or Continued at Discharge Meds if any: NOT Prescribed or Continued at Discharge Venous thromboembolism Inclusion Criteria VTE Diagnosis No VTE Type NONE VTE Confirmed by (Test) NONE Discharge Core Measures - Per Current guidelines, there needs to be overlap - treatment for the first 5 days of Warfarin therapy. - If discharged on Warfarin prior to 5 days of - overlap therapy, the patient will need to be - assessed for post discharge needs including - *Post discharge parental anticoagulation - *Warfarin and/or parental anticoagulation education - *Follow up date to check INR post discharge At least 5 days overlap therapy as Inpatient No Meds if any: Prescribed or Continued at Discharge Note: Overlap Therapy is Warfarin and Anticoagulant Meds if any: NOT Prescribed or Continued at Discharge
--- NOTE | 2016-05-06 09:30 | NUR ---
DISCHARGE ORDER PLACED. PATIENT AWARE OF ROAD CONDITIONS. PATIENT STATES HE HAS A TRUCK AND CAN DRIVE HIMSELF. NURSING FREIGHT ROUTER AND SPECIAL PROCEDURES NURSE AWARE.
--- NOTE | 2016-05-06 17:39 | Discharge Summary ---
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 On initial presentation, patient was febrile to 104.2 and tachycardic with HR in the 110-130s. Remaining vitals were normal. On exam, he had pharyngeal erythema with bilateral enlarged tonsils and bilateral anterior cervical lymphadenopathy. Labs revealed WBC 7.8, H/H 10.0 /31.5, MCV 65.6 and platelet count 103. Urinalysis was unremarkable. CXR was negative. Quick strep, flu swab and monospot tests were all negative. Patient was admitted for sepsis secondary to suspected strep pharyngitis. Below are the issues that were addressed during current admission: #Presumed strep pharyngitis: Patient met the SIRS criteria for sepsis on admission given fever and tachycardia on admission. Although quick strep was negative, it was felt that this was most likely a false negative in the setting of high clinical suspicion for strep pharyngitis given tender anterior cervical adenopathy and tonsillar exudates. He was started on a 10-day course of amoxicillin 500 mg PO BID with significant improvement of his symptoms, including defervescence and resolution of tonsillar exudates. Gonorrhea and chlamydia throat cultures were later sent and came back negative. * Patient will continue amoxicillin for 5 more days after discharge for a total of 10 days of antibiotics. #Microcytic anemia/thrombocytopenia: Patient has microcytic anemia with microcytosis out of proportion to the anemia. This was associated with thrombocytopenia with a platelet count that further downtrended to 78, despite improvement of sepsis, concerning for a possible bone marrow process. Of note, microcytic anemia and thrombocytopenia has been chronic since 2013. Extensive work-up was performed which was negative. HIV was negative. CT Abdomen/Pelvis was unremarkable. There was no evidence of hemolysis with normal bilirubin. Peripheral smear showed few target cells and ovalocytes but was unremarkable otherwise. Iron studies showed low iron, low TIBC and normal ferritin. Severe microcytosis would be suspicious for thalassemia in the setting of positive family history (father with thalassemia), however it usually presents at a younger age. * Patient will have CBC checked in 2 days after discharge (05/08/16) and send results to PCP Dr. Rogel. 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 * He will need further work-up as outpatient including further evaluation for a possible bone marrow process. Outpatient referral for private banker Dr. Scales was provided. * Haptoglobin result was pending at the time of discharge. Patient will follow up with results as outpatient. Allergies: Coded Allergies: ibuprofen (INTENSE FLUSHING OCCASIONALLY 05/03/16) Disposition Summary Disposition Principal Diagnosis: Presumed strep pharyngitis Additional Diagnosis: Microcytic anemia Thrombocytopenia Discharge Disposition: home or self care Discharge Instructions General Discharge Information Code Status: Full Code Patient's Diet: Regular Patient's Activity: Full Activity/No Limits Follow-Up Instructions/Appts: Please have your CBC checked on 05/08/16 and forward results to your PCP Dr. Rogel. Please follow up with your PCP on 05/12/16. Do not return to work until you are cleared by your PCP. We are giving you a referral to private banker Dr. Scales for your low blood count. Please follow up with him within two weeks of discharge. Medications at Discharge Discharge Medications: Stop taking the following medications: Penicillin V Potassium (Penicillin V Potassium) 500 MG TABLET ORAL THREE TIMES DAILY Qty = 30 Continue taking these medications: Acetaminophen (Acetaminophen) 500 MG TABLET 2 Tablet ORAL EVERY SIX HOURS Comments: Last Taken: 05/05/16 Time: 10:00 PM Start taking the following new medications: Amoxicillin (Amoxicillin) 500 MG CAPSULE 500 Milligram ORAL TWICE DAILY Qty = 12 No Refills Comments: Last Taken: 05/06/16 Time: 9:00 AM Copies To: DESMOND MORALES,[facility]; MELANIE MORALES,[facility]
== END 2016-05-06 10:00 | DRG 720 ==
LOC: ENRESERVTM → ENRESERVDT → ERH 15:35 → 2NB 22:48 → ERHI 22:48 → ENPENDDIS 22:48 → 2NB 05-04 01:12
PROVIDERS: Internal Medicine; Physician Assistant; Student in an Organized Health Care Education/Training Program; ADMIT Student in an Organized Health Care Education/Training Program
DX: A40.9 Streptococcal sepsis, unspecified (principal); F17.200 Nicotine dependence, unspecified, uncomplicated; J02.0 Streptococcal pharyngitis; D64.9 Anemia, unspecified; D69.6 Thrombocytopenia, unspecified
CPT/HCPCS: 2NBSP; ERO; 74177; 80307; 81003; 82436; 83010; 83625; 87040; 87086; 87389; 87449; 87450; 87804; 87804-59; 96361; 96374; J0131; J3490